=== PATIENT | male | born 1970 | race Caucasian/White ===

== ENCOUNTER 2020-05-09 08:10 | Day surgery (SDC) | payer OTHER, SELFPAY ==
[2020-05-09] VITALS (7 sets, daily range): BP systolic 110–141; BP diastolic 46–97; PULSE 68–78; RESP 15–18; TEMP 36.5–37.1; O2SAT 93–98; BMI 36.6
--- NOTE | 2020-05-09 09:06 | W.ED.ABDPA2 ---
Documented by User: YANETH Parisi 05/09/20 10:47 HPI - Abdominal Pain General: Chief Complaint: Abdominal Pain Stated Complaint: ABD PAIN Time Seen by Provider: 05/09/20 09:06 History of Present Illness: HPI narrative: Patient is a 50-year-old male comes to the ED with abdominal pain. Patient says he started having abdominal pain in the right lower quadrant that started approximately 3 days ago on Friday. Pain rated a 3 out of 10 currently. Reports decreased appetite since onset of abdominal pain. He also endorses having some occasional diarrhea as well. Denies fever, nausea, vomiting, dysuria or hematuria. Patient said he currently does not need any pain meds and will notify nurse when he feels like he does. Patient says he had a couple coffee this morning but has not eaten anything today. He says his last meal was in the evening last night. Associated Symptoms: Reports diarrhea; Denies chills, constipation, dysuria, fever(s), hematochezia, hematuria, nausea and vomiting Review of Systems Const: Reports: change in appetite (decreased ); Denies: fever(s), chills or fatigue Eyes: Denies: change in vision or eye discomfort ENMT: Denies: throat pain, odynophagia, nasal discharge or nasal congestion Card: Denies: chest pain, palpitations, edema, swelling of feet/ankles, dyspnea on exertion or orthopnea Resp: Denies: dyspnea, productive cough or non-productive cough GI: Reports: abdominal pain and diarrhea; Denies: nausea, vomiting, constipation or hematochezia : Denies: flank pain, difficulty urinating, dysuria or hematuria Musc: Denies: neck pain, back pain or extremity swelling Skin/Breast: Denies: rash or new lesions Neuro: Denies: headache(s), numbness in extremities or weakness in extremities PFSH ED PFSH: Social History Smoking and tobacco status: never smoked Alcohol intake: current Alcohol intake frequency: holidays/special occasions only Substance/Drug Use: current Substance/Drug use frequency: Special occassions/opportunity only Substance/Drug use type: Marijuana Physical Exam Const: COMMON NORMALS: no acute distress, patient oriented x3 and alert GENERAL APPEARANCE: cooperative and comfortable NUTRITIONAL APPEARANCE: overweight HENMT: COMMON NORMALS: normocephalic HEAD & SCALP: normocephalic MOUTH: Normal oral and palatal mucosa present THROAT: posterior oropharynx normal and uvula midline Eye: COMMON NORMALS: Equal, round and reactive pupils present PUPIL: Yes Equal, round and reactive pupils present Neck/C-Spine: COMMON NORMALS: supple GENERAL: Yes normal visual inspection Resp: COMMON NORMALS: normal respiratory effort, No retractions, No use of accessory muscles and clear to auscultation bilaterally AUSCULTATION: clear to auscultation bilaterally Cardio: COMMON NORMALS: regular rate, regular rhythm, S1 normal heart sound present, S2 normal heart sound present, No gallops present (Cardio), No clicks present (Cardio), No murmurs present (Cardio) and Peripheral pulses 2+ throughout RATE: regular rate RHYTHM: regular rhythm HEART SOUNDS: S1 normal heart sound present and S2 normal heart sound present PERIPHERAL PULSES: Peripheral pulses 2+ throughout GI: COMMON NORMALS: Normal to inspection, nondistended, normoactive bowel sounds present, Soft to palpation and no masses INSPECTION: Yes central obesity PALPATION: Yes Soft to palpation and Yes Tenderness to palpation present (GI) Details: RLQ (McBurney's point tenderness. Negative Rovsing sign) : COMMON NORMALS: Yes no CVA tenderness BLADDER/KIDNEY EXAM: Yes no CVA tenderness Back/Pelvis: COMMON NORMALS: no CVA tenderness Extremity: COMMON NORMALS: normal to inspection and no pedal edema Neuro: COMMON NORMALS: patient oriented x3 SENSORIUM/ORIENTATION: Yes alert GAIT: Yes Normal gait present Skin: GENERAL SKIN EXAM: dry skin Course Consultations: Consultation #1: Contacted Dr. Sullivan the on-call general surgeon told outpatient case. He recommended bringing patient in on observations and surgery later today. Time: 10:37 Vital Signs: Vital signs: Vital Signs Temperature 98.4 F 05/09/20 08:26 Pulse Rate 69 05/09/20 10:21 Respiratory Rate 16 05/09/20 08:26 Blood Pressure 130/77 05/09/20 10:21 Pulse Oximetry 98 05/09/20 10:21 MDM - Abdominal Pain MDM Narrative: Medical decision making narrative: Patient is a 50-year-old male comes to the ED with right lower quadrant abdominal pain. Physical exam is remarkable for McBurney's point tenderness. White blood cell count 9.8 and the rest of CBC and CMP was unremarkable. CT of the abdomen showed acute appendicitis with appendicolith with moderate periappendiceal inflammation present. I contacted Dr. Sullivan and he told me to bring patient in on Thao and he will do surgery later today. I told patient he understood and agreed with plan. Dr. Diez will be placing the orders. Lab Data: Attestation: I reviewed the patient's lab results. Labs: Lab Results 05/09/20 05/09/20 05/09/20 Range/Units 09:12 09:15 09:15 WBC 9.8 (4.0-10.0) 10^3/ uL RBC 5.07 (4.1-5.3) 10^6/u L Hgb 15.0 (11.7-16.6) g/dL Hct 45.8 (42.0-52.0) % MCV 90.3 (80-94) fL MCH 29.6 (28.0-34.0) pg MCHC 32.8 (30.0-36.0) g/dL RDW 12.6 (12.1-15.1) % Plt Count 198 (130-400) 10^3/c mm MPV 8.7 (7.4-10.4) fL Neut % (Auto) 75.8 % Lymph % (Auto) 13.0 % [place] % (Auto) 9.5 % Eos % (Auto) 1.4 % Baso % (Auto) 0.1 % Neut # (Auto) 7.38 (1.8-7.7) 10^3/u L Lymph # (Auto) 1.3 (0.8-4.8) 10^3/u L [place] # (Auto) 0.9 (0.2-0.9) 10^3/u L Eos # (Auto) 0.1 (0.0-0.8) 10^3/u L Baso # (Auto) 0.0 (0.0-0.1) 10^3/u L Nucleated RBC % (a uto) 0 % Nucleated RBCs # 0.0 /100WBC Sodium 136 (136-145) mmol/L Potassium 3.8 (3.5-5.1) mmol/L Chloride 100 (98-107) mmol/L Carbon Dioxide 27 (22-29) mmol/L Anion Gap 12.8 (5-19) BUN 15 (6-20) mg/dL Creatinine 0.8 (0.7-1.2) mg/dL GFR Calculation 102.3 (90-130) mL/min Glucose 88 (65-115) mg/dL Calculated Osmolal ity 282 L (285-295) mOsm/k g Calcium 9.8 (8.5-10.5) mg/dL Total Bilirubin 0.5 (0.15-1.2) mg/dL AST 16 (0-40) U/L ALT 22 (0-41) U/L Alkaline Phosphata se 81 (40-130) IU/L Total Protein 6.9 (6.6-8.7) g/dL Albumin 4.3 (3.5-5.2) g/dL Globulin 2.6 (1.3-4.6) g/dL Lipase 30 (13-60) U/L Urine Color Straw (Yellow) Urine Appearance Clear (CLEAR) Urine pH 5.0 (5-7) Ur Specific Gravit y 1.010 (1.005-1.030) Urine Protein Neg (Negative) Urine Glucose (UA) Norm (Normal) Urine Ketones Negative (Negative) Urine Blood Neg (Negative) Urine Nitrate Negative (Negative) Urine Bilirubin Neg (Negative) Urine Urobilinogen Norm (Negative) mg/dL Ur Leukocyte Angeline ase Negative (Negative) Urine RBC None (0-2) /hpf Urine WBC None (0-5) /hpf Ur Squamous Epith Cells 0-4 H (0-5) /hpf Amorphous Sediment Not Reportable Urine Bacteria Trace (NONE) /hpf Imaging Data ^: CT Abd/Pel: Attestation: I personally reviewed and interpreted this imaging study as follows: Radiologist's impression: [address] [address] [address] Scan Report Signed Patient: Diego Smith Unit #: [id number] : 1970 Age/Sex: 50 / M ADM Date: 05/09/20 Loc: ER Room/Bed: Attending Dr: Ordering Provider/Ordering MD: Natalio Yarbrough Date of Service: 05/09/20 Procedure(s): CT abdomen pelvis w con* [id number] Accession Number(s): [id number] Report Number: [id number] WS: [id number] CT ABDOMEN AND PELVIS WITH CONTRAST HISTORY: Abdominal pain RLQ-diarrhea and decrease appetite TECHNIQUE: Imaging performed of the abdomen and pelvis with IV contrast. Single phase imaging of the abdomen. Coronal and sagittal reformats are submitted. All CT scans at [facility] use at least one of these dose optimization techniques: automated exposure control; mA and/or kV adjustment per patient size (includes targeted exams where dose is matched to clinical indication); or iterative reconstruction. IV CONTRAST: Omnipaque 300; 95 mL IV. Oral contrast: No DLP: 1839.14 mGy.cm COMPARISON: None available. Lower thorax: Micronodules at the LEFT lung base. The largest nodule may be calcified. Heart is normal size. No hiatal hernia. Liver/biliary system: Normal size with no intrahepatic dilatation. Gallbladder: Normal. No gallstones or wall thickening. No pericholecystic fluid. Pancreas: Normal. Spleen: Normal. Adrenal glands: Normal. Right kidney: Normal size kidney with several cysts. The largest cyst in the lower pole measures 3.5 x 3.0 cm. Left kidney: Normal size kidney. Several cysts. The largest in the mid kidney measures 2.8 x 2.0 cm. Aorta: Normal. Lymphadenopathy: None. Free fluid: None. GI tract: Abnormal appendix. Appendix is enlarged with a large amount of diameter of the appendix is 20 mm. 10 mm calcification at the base of the appendix. Additional phleboliths within the mid appendiceal lumen. There are a few small lymph nodes in the RIGHT lower quadrant within the inflammation. There is mild inflammation also involving the cecum. Abdominal wall: Unremarkable abdominal wall. No hernia. Pelvis: A few scattered diverticula within the descending and sigmoid colon. Bones: Mild degenerative joint disease at the hips. CT/CT abdomen pelvis w con* [id number] IMPRESSION: 1. Acute appendicitis with appendicolith at the base of the appendix and a moderate amount of periappendiceal inflammation and as few reactive lymph nodes. No abscess. 2. No renal obstruction. 3. Bilateral renal cysts. Notified YANETH Parisi at 05/09/2020 10:20 AM. Dictated By: Lyndsey Mahmood DO Signed By: Lyndsey Mahmood DO Signed Date/Time: 05/09/20 1021 DD/ 1003 Discharge Plan Discharge Clinical Impression: Acute appendicitis Qualifiers: Acute appendicitis type: with localized peritonitis Appendicitis gangrene presence: without gangrene Appendicitis perforation presence: without perforation Appendicitis abscess presence: without abscess Qualified Code(s): K35.30 - Acute appendicitis with localized peritonitis, without perforation or gangrene Condition: Stable Prescriptions: No Action multivitamin Tablet 1 tab PO DAILY@05 RF: 0 vitamin E 1,000 unit Capsule 1,000 unit PO DAILY@05 RF: 0 Glucosamine 500 mg Tablet 500 mg PO DAILY@05 RF: 0 Calcium + D 600 mg(1,500mg) -200 unit Tablet 1 tab PO DAILY@05 RF: 0 sildenafil 100 mg tablet 100 mg PO PRN RF: 0 lisinopril-hydrochlorothiazide 20-25 mg tablet 1 tab PO DAILY@05 RF: 0 Referrals: Travon Mccann MD [Primary Care Provider] - Patient Instructions: Appendicitis (GEN) Sign Out Sign Out Data: Patient Sign Out occurred on 05/09/20 at 10:54. Patient's care was discussed, and care was transferred from to Oscar Diez DO. Coding Level of Care Code ED Coffee Break Attendant for Chg Fwd Exam Comprehensive Documented by User: Oscar Diez DO 05/09/20 11:26 HPI - Abdominal Pain General: Chief Complaint: Abdominal Pain Stated Complaint: ABD PAIN Time Seen by Provider: 05/09/20 09:06 History of Present Illness: HPI narrative: 50-year-old male initially seen by midlevel. He has right lower quadrant pain that began 3 days ago. He has had some occasional diarrhea. Is gotten progressively worse. He was evaluated by the PA and found to have acute appendicitis. MD elicited complaint: abdominal pain Associated Symptoms: Reports diarrhea; Denies bloating, chills, coffee ground emesis, constipation, dysuria, fever(s), hematochezia, hematemesis, melena, nausea and vomiting Review of Systems Const: Denies: fever(s), chills, body aches, change in appetite, fatigue or malaise ENMT: Denies: throat pain, ear or mastoid pain, nasal discharge or nasal congestion Card: Denies: chest pain, edema, dyspnea on exertion or orthopnea Resp: Denies: dyspnea, productive cough or non-productive cough GI: Reports: abdominal pain and diarrhea; Denies: nausea, vomiting, hematemesis, coffee ground emesis, constipation, bloating, hematochezia or melena : Denies: flank pain, dysuria, urinary frequency or urinary urgency PFSH ED PFSH: Social History Smoking and tobacco status: never smoked Alcohol intake: current Alcohol intake frequency: holidays/special occasions only Substance/Drug Use: current Substance/Drug use frequency: Special occassions/opportunity only Substance/Drug use type: Marijuana Physical Exam Const: COMMON NORMALS: no acute distress GENERAL APPEARANCE: cooperative and comfortable ORIENTATION/CONSCIOUSNESS: Yes awake, Yes oriented to person, Yes oriented to place and Yes oriented to time HENMT: COMMON NORMALS: normocephalic, atraumatic and hearing grossly normal bilaterally HEAD & SCALP: normocephalic and atraumatic Neck/C-Spine: COMMON NORMALS: no JVD Resp: COMMON NORMALS: normal respiratory effort, No retractions, No use of accessory muscles and clear to auscultation bilaterally AUSCULTATION: clear to auscultation bilaterally Cardio: COMMON NORMALS: no JVD, regular rate, regular rhythm and No murmurs present (Cardio) RATE: regular rate RHYTHM: regular rhythm GI: COMMON NORMALS: Soft to palpation and No hepatosplenomegaly present AUSCULTATION: Yes normoactive bowel sounds PALPATION: Yes Soft to palpation, No Tenderness to palpation present (GI), No Guarding due to palpation present (GI) and Yes No hepatosplenomegaly present Extremity: COMMON NORMALS: normal to inspection, capillary refill normal, no clubbing, cyanosis or edema, no calf tenderness and no pedal edema Neuro: SENSORIUM/ORIENTATION: Yes oriented to person, Yes oriented to place and Yes oriented to time Skin: COMMON NORMALS: no rashes or lesions noted GENERAL SKIN EXAM: no rashes or lesions noted Course Vital Signs: Vital signs: Vital Signs Temperature 98.4 F 05/09/20 08:26 Pulse Rate 69 05/09/20 10:21 Respiratory Rate 16 05/09/20 08:26 Blood Pressure 130/77 05/09/20 10:21 Pulse Oximetry 98 05/09/20 10:21 MDM - Abdominal Pain MDM Narrative: Medical decision making narrative: Patient still has right lower quadrant pain CT shows appendicitis PA as discussed Dr. Sullivan. Is a critical bed shortage in the hospital were going to have him go to the surgery preop area until they are able to do surgery and then will put him to observation on the floor after that. Lab Data: Labs: Lab Results 05/09/20 05/09/20 05/09/20 Range/Units 09:12 09:15 09:15 WBC 9.8 (4.0-10.0) 10^3/ uL RBC 5.07 (4.1-5.3) 10^6/u L Hgb 15.0 (11.7-16.6) g/dL Hct 45.8 (42.0-52.0) % MCV 90.3 (80-94) fL MCH 29.6 (28.0-34.0) pg MCHC 32.8 (30.0-36.0) g/dL RDW 12.6 (12.1-15.1) % Plt Count 198 (130-400) 10^3/c mm MPV 8.7 (7.4-10.4) fL Neut % (Auto) 75.8 % Lymph % (Auto) 13.0 % [place] % (Auto) 9.5 % Eos % (Auto) 1.4 % Baso % (Auto) 0.1 % Neut # (Auto) 7.38 (1.8-7.7) 10^3/u L Lymph # (Auto) 1.3 (0.8-4.8) 10^3/u L [place] # (Auto) 0.9 (0.2-0.9) 10^3/u L Eos # (Auto) 0.1 (0.0-0.8) 10^3/u L Baso # (Auto) 0.0 (0.0-0.1) 10^3/u L Nucleated RBC % (a uto) 0 % Nucleated RBCs # 0.0 /100WBC Sodium 136 (136-145) mmol/L Potassium 3.8 (3.5-5.1) mmol/L Chloride 100 (98-107) mmol/L Carbon Dioxide 27 (22-29) mmol/L Anion Gap 12.8 (5-19) BUN 15 (6-20) mg/dL Creatinine 0.8 (0.7-1.2) mg/dL GFR Calculation 102.3 (90-130) mL/min Glucose 88 (65-115) mg/dL Calculated Osmolal ity 282 L (285-295) mOsm/k g Calcium 9.8 (8.5-10.5) mg/dL Total Bilirubin 0.5 (0.15-1.2) mg/dL AST 16 (0-40) U/L ALT 22 (0-41) U/L Alkaline Phosphata se 81 (40-130) IU/L Total Protein 6.9 (6.6-8.7) g/dL Albumin 4.3 (3.5-5.2) g/dL Globulin 2.6 (1.3-4.6) g/dL Lipase 30 (13-60) U/L Urine Color Straw (Yellow) Urine Appearance Clear (CLEAR) Urine pH 5.0 (5-7) Ur Specific Gravit y 1.010 (1.005-1.030) Urine Protein Neg (Negative) Urine Glucose (UA) Norm (Normal) Urine Ketones Negative (Negative) Urine Blood Neg (Negative) Urine Nitrate Negative (Negative) Urine Bilirubin Neg (Negative) Urine Urobilinogen Norm (Negative) mg/dL Ur Leukocyte Angeline ase Negative (Negative) Urine RBC None (0-2) /hpf Urine WBC None (0-5) /hpf Ur Squamous Epith Cells 0-4 H (0-5) /hpf Amorphous Sediment Not Reportable Urine Bacteria Trace (NONE) /hpf Discharge Plan Discharge Clinical Impression: Acute appendicitis Qualifiers: Acute appendicitis type: with localized peritonitis Appendicitis gangrene presence: without gangrene Appendicitis perforation presence: without perforation Appendicitis abscess presence: without abscess Qualified Code(s): K35.30 - Acute appendicitis with localized peritonitis, without perforation or gangrene Condition: Stable Prescriptions: No Action multivitamin Tablet 1 tab PO DAILY@05 RF: 0 vitamin E 1,000 unit Capsule 1,000 unit PO DAILY@05 RF: 0 Glucosamine 500 mg Tablet 500 mg PO DAILY@05 RF: 0 Calcium + D 600 mg(1,500mg) -200 unit Tablet 1 tab PO DAILY@05 RF: 0 sildenafil 100 mg tablet 100 mg PO PRN RF: 0 lisinopril-hydrochlorothiazide 20-25 mg tablet 1 tab PO DAILY@05 RF: 0 Referrals: Travon Mccann MD [Primary Care Provider] - Patient Instructions: Appendicitis (GEN) Sign Out Sign Out Data: Patient Sign Out occurred on 05/09/20 at 10:54. Patient's care was discussed, and care was transferred from to Oscar Diez DO. Coding Level of Care Code ED Coffee Break Attendant for Mildred Fwd Exam Comprehensive
--- NOTE | 2020-05-09 09:27 | CT_ITS ---
WS: [id number] CT ABDOMEN AND PELVIS WITH CONTRAST HISTORY: Abdominal pain RLQ-diarrhea and decrease appetite TECHNIQUE: Imaging performed of the abdomen and pelvis with IV contrast. Single phase imaging of the abdomen. Coronal and sagittal reformats are submitted. All CT scans at [facility] use at least one of these dose optimization techniques: automated exposure control; mA and/or kV adjustment per patient size (includes targeted exams where dose is matched to clinical indication); or iterativ e reconstruction. IV CONTRAST: Omnipaque 300; 95 mL IV. Oral contrast: No DLP: 1839.14 mGy.cm COMPARISON: None available. Lower thorax: Micronodules at the LEFT lung base. The largest nodule may be calcified. Heart is lenka l size. No hiatal hernia. Liver/biliary system: Normal size with no intrahepatic dilatation. Gallbladder: Normal. No gallstones or wall thickening. No pericholecystic fluid. Pancreas: Normal. Spleen: Normal. Adrenal glands: Normal. Right kidney: Normal size kidney with several cysts. The largest cyst in the lower pole measures 3.5 x 3.0 cm. Left kidney: Normal size kidney. Several cysts. The largest in the mid kidney measures 2.8 x 2.0 cm. Aorta: Normal. Lymphadenopathy: None. Free fluid: None. GI tract: Abnormal appendix. Appendix is enlarged with a large amount of diameter of the appendix is 20 mm. 10 mm calcification at the base of the appendix. Additional phleboliths within the mid appendi ceal lumen. There are a few small lymph nodes in the RIGHT lower quadrant within the inflammation. Th ere is mild inflammation also involving the cecum. Abdominal wall: Unremarkable abdominal wall. No hernia. Pelvis: A few scattered diverticula within the descending and sigmoid colon. Bones: Mild degenerative joint disease at the hips. CT/CT abdomen pelvis w con* [id number] IMPRESSION: 1. Acute appendicitis with appendicolith at the base of the appendix and a mod erate amount of periappendiceal inflammation and as few reactive lymph nodes. N o abscess. 2. No renal obstruction. 3. Bilateral renal cysts. Notified YANETH Parisi at 05/09/2020 10:20 AM.
[2020-05-09 09:30] LABS: Basophils % 0.1 %; Eosinophils # 0.1 10^3/uL (0.0-0.8); Eosinophils % 1.4 %; Hematocrit 45.8 % (42.0-52.0); Lymphocytes # 1.3 10^3/uL (0.8-4.8); Mean Corpuscular HGB Conc 32.8 g/dL (30.0-36.0); Mean Corpuscular Hemoglobin 29.6 pg (28.0-34.0); Mean Corpuscular Volume 90.3 fL (80-94); Mean Platelet Volume 8.7 fL (7.4-10.4); Monocytes # 0.9 10^3/uL (0.2-0.9); Monocytes % 9.5 %; Neutrophils # 7.38 10^3/uL (1.8-7.7); Neutrophils % 75.8 %; Nucleated Red Blood Cells % 0 %; Platelet Count 198 10^3/cmm (130-400); Red Blood Count 5.07 10^6/uL (4.1-5.3); Red Cell Distribution Width 12.6 % (12.1-15.1); White Blood Count 9.8 10^3/uL (4.0-10.0)
[2020-05-09 09:44] LABS: Alanine Aminotransferase 22 U/L (0-41); Albumin Level 4.3 g/dL (3.5-5.2); Alkaline Phosphatase 81 IU/L (40-130); Anion Gap 12.8 (5-19); Aspartate Amino Transferase 16 U/L (0-40); Blood Urea Nitrogen 15 mg/dL (6-20); Calcium 9.8 mg/dL (8.5-10.5); Carbon Dioxide 27 mmol/L (22-29); Chloride 100 mmol/L (98-107); Creatinine Clr Calc Pharmacy 149.2938; Globulin 2.6 g/dL (1.3-4.6); Glomerular Filtration Rate 102.3 mL/min (90-130); Glucose 88 mg/dL (65-115); Lipase 30 U/L (13-60); Osmolality Calculated 282 mOsm/kg (285-295); Potassium 3.8 mmol/L (3.5-5.1); Sodium 136 mmol/L (136-145); Total Bilirubin 0.5 mg/dL (0.15-1.2); Total Protein 6.9 g/dL (6.6-8.7)
[2020-05-09 09:54] LABS: Add Urine Culture? No; Bacteria Urine TRACE /hpf; Bilirubin Urine Neg (Negative); Blood Urine Neg (Negative); Glucose Urine UA Norm (Normal); Ketones Urine Negative (Negative); Leukocyte Esterase Urine Negative (Negative); Nitrate Urine Negative (Negative); Protein Urine Neg (Negative); Squamous Epithelial Cell Urine 0-4 /hpf (0-5); Urine Appearance Clear (CLEAR); Urine Color Straw (Yellow); Urobilinogen Urine Norm (Negative)
[2020-05-09] MEDS: iohexol 300 mg/mL 100 mL Btl IV (09:57)
[2020-05-09] MEDS: sodium chloride 0.9% 1,000 ML 999 ML IV (10:20)
[2020-05-09] MEDS: ciprofloxacin 400 MG/200 ML PREMIX 200 MG IV (10:54)
--- NOTE | 2020-05-09 12:04 | ANES.PREANE2 ---
Pre-Anesthetic Assessment Pre-Anesthetic Assessment: Height/Weight: Height 1.83 m Weight 122.47 kg Temp Pulse Resp BP Pulse Ox 97.7 F 76 18 141/87 98 05/09/20 12:02 05/09/20 12:02 05/09/20 12:02 05/09/20 12:02 05/09/20 12:02 Proposed Procedure: Operation Date: 05/09/20 12:45 Proposed Procedures p Laparoscopic Appendectomy(Not Applicable) - Michael Sullivan MD Last intake: Intake Last Liquid Date 05/09/20 Last Liquid Time 05:30 Last Solid Date 05/08/20 Last Solid Time 18:30 Social: Social History: Alcohol (occ) and Tobacco Exam: Pre-Anes Outpt Exam: alert, oriented x 3, clear to auscultation bilaterally and regular rate & rhythm Airway: Submandibular: WNL Cervical ROM: WNL MP: 2 Additional comments: teeth ok History/ROS: No significant history except as noted Pulmonary: Pulmonary: None reported CV/HEM: CV/HEM: HTN : : None reported Hepatic: Hepatic: None reported GI: Comments: appendisitis Metabolic: Metabolic: None reported Musc/skel: Musc/skel: None reported Neuropsych: Neuropsych: None reported Anesthetic Plan: ASA status: 3 Anesthesia: Anesthesia Evaluation and General Risk of > 500 ml blood loss (7ml/kg in children): No PFSH Anesthesia PFSH: Medical History (Updated 05/09/20 @ 12:02 by Michael Sullivan MD) Hypertension Surgical History (Updated 05/09/20 @ 12:02 by Michael Sullivan MD) History of pilonidal cyst History of right knee surgery x 2 Social History Smoking and tobacco status: never smoked Alcohol intake: current Alcohol intake frequency: holidays/special occasions only Substance/Drug Use: current Substance/Drug use frequency: Special occassions/opportunity only Substance/Drug use type: Marijuana Data Anesthesia CBC & Chem 7: 05/09/20 09:15 05/09/20 09:15 Other Labs: Laboratory Results - last 48 hr 05/09/20 05/09/20 05/09/20 09:12 09:15 09:15 WBC 9.8 RBC 5.07 Hgb 15.0 Hct 45.8 MCV 90.3 MCH 29.6 MCHC 32.8 RDW 12.6 Plt Count 198 MPV 8.7 Neut % (Auto) 75.8 Lymph % (Auto) 13.0 [place] % (Auto) 9.5 Eos % (Auto) 1.4 Baso % (Auto) 0.1 Neut # (Auto) 7.38 Lymph # (Auto) 1.3 [place] # (Auto) 0.9 Eos # (Auto) 0.1 Baso # (Auto) 0.0 Nucleated RBC % (auto) 0 Nucleated RBCs # 0.0 Sodium 136 Potassium 3.8 Chloride 100 Carbon Dioxide 27 Anion Gap 12.8 BUN 15 Creatinine 0.8 GFR Calculation 102.3 Glucose 88 Calculated Osmolality 282 L Calcium 9.8 Total Bilirubin 0.5 AST 16 ALT 22 Alkaline Phosphatase 81 Total Protein 6.9 Albumin 4.3 Globulin 2.6 Lipase 30 Urine Color Straw Urine Appearance Clear Urine pH 5.0 Ur Specific [place] 1.010 Urine Protein Neg Urine Glucose (UA) Norm Urine Ketones Negative Urine Blood Neg Urine Nitrate Negative Urine Bilirubin Neg Urine Urobilinogen Norm Ur Leukocyte Esterase Negative Urine RBC None Urine WBC None Ur Squamous Epith Cells 0-4 H Amorphous Sediment Not Reportable Urine Bacteria Trace Cardiac Studies: No Data to Display
[2020-05-09] MEDS: sodium chloride 0.9% 1,000 ML 30 ML IV (12:15)
[2020-05-09] MEDS: metroNIDAZOLE IV 500 MG/100 ML PREMIX 100 MG IV (12:20)
[2020-05-09] MEDS: HYDROcodone-acetaminophen 5-325 mg Tablet 1 TAB PO (14:11)
== END 2020-05-09 14:28 | disposition home or self-care (01) ==
LOC: ER 11:26 → OPS 11:28
PROVIDERS: Physician Assistant; Emergency Provider Family Medicine; PCP Family Medicine; Visit Provider Surgery
PROC: 0DTJ4ZZ Resection of Appendix, Percutaneous Endoscopic Approach (ICD-10-PCS; CPT 44970; principal; 2020-05-09 12:45)
DX: K35.30 Acute appendicitis with localized peritonitis, without perforation or gangrene (principal); I10 Essential (primary) hypertension
CPT/HCPCS: 44970; 12345; 74177; 80053; 81001; 83690; 85025; 88304; 99283; J0131; J0744; J1100; J1885; J2405; J2704; J3010; J3490; J7030; Q9967; S0030

== ENCOUNTER 2023-09-01 12:23 | Outpatient (CLI) | payer OTHER, SELFPAY ==
--- NOTE | 2023-09-01 12:30 | MR_ITS ---
WS: [id number] MRI LUMBAR SPINE NONCONTRAST HISTORY: LUMBAR RADICULOPATHY COMPARISON: Lumbar spine radiograph 07/04/2023 TECHNIQUE: Sagittal and axial multisequence imaging is submitted. Mild cervical stenosis at C4-5 due to disc osteophyte disease. There are few additional small central disc protrusions in the thoracic spine with no cord compression. Mild disc space narrowing and desiccation throughout the lumbar spine. Thecal sac is small. Conus terminates normally at T12. L1-L2: Mild disc bulging and facet arthritis. Mild bilateral foraminal stenosis. L2-L3: Diffuse annular disc bulging. Central to LEFT paracentral disc protrusion deforming the LEFT l ateral thecal sac. Moderate ligamentum flavum and facet arthritis. Diffuse osteophytic ridging. Moder ate central, bilateral subarticular recess and foraminal stenosis. L3-L4: Diffuse annular disc bulging and osteophytic ridging. Facet joint arthritis and ligamentum fla vum hypertrophy. Moderate central, subarticular recess and foraminal stenosis. L4-L5: Diffuse annular disc bulging with osteophytic ridging. Shallow central disc protrusion. Modera te facet joint arthritis and ligamentum flavum hypertrophy. Moderate to severe central with bilateral subarticular recess and moderate foraminal stenosis. Greater stenosis RIGHT foramen. Suspect there m ay be an additional disc protrusion in the RIGHT foramen. There is significant contact on the L4 and L5 roots nerve roots. L5-S1: Diffuse annular disc bulging is asymmetric to the RIGHT. There is greater contact involving th e RIGHT lateral thecal sac and the RIGHT S1 nerve root. Moderate to severe central with bilateral sub articular recess and mild foraminal stenosis. RIGHT renal cyst. Largest cyst is incompletely visualized. IMPRESSION: 1. Multilevel central, subarticular recess and foraminal stenosis. In part the stenosis is worsened by diffuse developmental small thecal sac. 2. L4-5: Moderate to severe central with bilateral subarticular recess and foraminal stenosis. Steno sis due to combination of disc disease osteophytes and facet joint arthritis. Significant encroachmen t upon the L4 and L5 nerve roots. 3. L5-S1: Moderate to severe central with bilateral subarticular recess and mild foraminal stenosis. There is asymmetric disc bulging to the RIGHT with greater contact on the RIGHT S1 nerve root. 4. L2-3 and L3-4: Moderate central, subarticular recess and foraminal stenosis.
== END 2023-09-01 12:24 | disposition home or self-care (01) ==
LOC: RAD 12:24
PROVIDERS: PCP Family Medicine; Visit Provider Family Medicine
DX: M54.16 Radiculopathy, lumbar region (principal); M48.061 Spinal stenosis, lumbar region without neurogenic claudication; M48.07 Spinal stenosis, lumbosacral region
CPT/HCPCS: 72148